=== PATIENT | male | born 1960 | race Asian ===

== ENCOUNTER → 2017-06-23 | Outpatient (CLI) | payer BC, OTHER ==
[~2017-06-23] MED LIST: BYSTOLIC2.5 MG PO; CENTRUM SILVER1 EAC2 PO; FISH OIL 1,001000 M2 PO; FLECAINIDE ACET50 M1 PO; XARELTO20 MG PO
--- NOTE | ~2017-06-23 | 2DMMODE ---
[facility] [address] [place] [address] 2 D/M-MODE ECHOCARDIOGRAM Name: FINESSE PALAFOX Ajay Room #: REG [facility]#: [id number] Admission: 06/23/17 Attend Phys: Urbano Abdi Discharge: Date of : 56 Date of Service: 06/23/17 0935 Report #: [id number] THIS REPORT FOR: //name// APPROVED REPORT Study performed: 06/23/2017 08:49:55 EXAM: Comprehensive 2D, Doppler, and color-flow Echocardiogram Patient Location: Out-Patient Room #: Echo lab BSA: 1.93 HR: 58 bpm BP: 104/76 mmHg Other Information Study Quality: Good Indications Atrial Fibrillation 2D Dimensions RVDd: 43.38 mm LVEF(%): 52.00 (>50%) IVSd: 9.02 (7-11mm) LVOT Diam: 22.38 (18-24mm) LVDd: 42.40 mm PWd: 8.99 (7-11mm) Ascending Ao: 27.94 (22-36mm) LVDs: 31.22 (25-40mm) Aortic Root: 31.78 mm IVC: 14.00 mm Pavon's LVEF: 52.00 % Volumes Left Atrial Volume (Systole) Single Plane 4CH: 28.65 mL Single Plane 2CH: 34.54 mL LA ESV Index: 20.00 mL/m2 Aortic Valve AoV Peak Daniel.: 0.98 m/s AO Peak Gr.: 3.83 mmHg LVOT Max P.34 mmHg LVOT Max V: 0.76 m/s DELIA Vmax: 3.07 cm2 Mitral Valve E/A Ratio: 1.5 MV Decel. Time: 206.34 ms MV E Max Daniel.: 0.73 m/s [facility] [place] [address] 2 D/M-MODE ECHOCARDIOGRAM Name: FINESSE PALAFOX [facility] Room #: [facility]#: [id number] Admission: 06/23/17 Attend Phys: Urbano Abdi Discharge: Date of : 56 Date of Service: 06/23/17 0935 Report #: [id number] MV A Daniel.: 0.48 m/s MV PHT: 59.84 ms IVRT: 124.57 ms Pulmonary Valve PV Peak Daniel.: 1.08 m/s PV Peak Gr.: 4.63 mmHg MA End Vmax: 1.02 m/s Pulmonary Vein P Vein S: 0.41 m/s P Vein A: 0.28 m/s P Vein D: 0.31 m/s P Vein A Dur.: 87.7 msec P Vein S/D Ratio: 1.32 Tricuspid Valve TR Peak Daniel.: 2.48 m/s TR Peak Gr.: 24.68 mmHg PA Pressure: 29.00 mmHg Left Ventricle The left ventricle is normal size. There is normal LV segmental wall motion. There is normal left ventricular wall thickness. The left ventricular systolic function is normal. The left ventricular ejection fraction is within the normal range. LVEF is 55%. Right Ventricle The right ventricle is normal size. The right ventricular systolic function is normal. Atria The left atrium size is normal. The right atrium size is normal. Aortic Valve The aortic valve is normal in structure. Trace aortic regurgitation. There is no aortic valvular stenosis. Mitral Valve The mitral valve is normal in structure. Mild mitral regurgitation. No evidence of mitral valve stenosis. Tricuspid Valve The tricuspid valve is normal in structure. There is trace to mild tricuspid regurgitation. Estimated PAP 29 mmHg. There is no pulmonary hypertension. Pulmonic Valve [address] [address] 2 D/M-MODE ECHOCARDIOGRAM Name: FINESSE PALAFOX [id number] Admission: 06/23/17 Attend Phys: Urbano Abdi Discharge: Date of : 56 Date of Service: 06/23/17 0935 Report #: [id number] The pulmonary valve is normal in structure. Trace pulmonic regurgitation. Great Vessels The aortic root is normal in size. IVC is normal in size and collapses >50% with inspiration. Pericardium There is no pericardial effusion. <Conclusion> The left ventricle is normal size. There is normal left ventricular wall thickness. The left ventricular systolic function is normal. The left atrium size is normal. Trace aortic regurgitation. Mild mitral regurgitation. There is trace to mild tricuspid regurgitation. Estimated PAP 29 mmHg. <ELECTRONICALLY SIGNED> By: Farhad Dc MD 06/23/1735 4 4 Farhad Dc MD /INF
== END ==
LOC: CV 07:18
DX: I08.1 Rheumatic disorders of both mitral and tricuspid valves (principal); I48.91 Unspecified atrial fibrillation

== ENCOUNTER → 2017-08-02 | Outpatient (CLI) | payer BC, OTHER | LOC: RAD 11:58 | DX: I48.0 Paroxysmal atrial fibrillation (principal); K21.9 Gastro-esophageal reflux disease without esophagitis ==

== ENCOUNTER → 2020-03-25 | Outpatient (CLI) | payer BC, OTHER ==
--- NOTE | 2020-03-25 10:04 | 2DMMODE ---
[facility] [place] [address] 2 D/M-MODE ECHOCARDIOGRAM Name: FINESSE PALAFOX [id number] Admission: 03/25/20 Attend Phys: Urbano Abdi MD Discharge: Date of : 56 Report #: [id number] THIS REPORT FOR: cc: Roman Roberts MD,Roman Ward,Mal Rodriguez MD [facility] ~ APPROVED REPORT Study performed: 03/25/2020 09:20:08 EXAM: Comprehensive 2D, Doppler, and color-flow Echocardiogram Patient Location: Out-Patient Room #: 2 Status: routine BSA: 1.90 HR: 49 bpm BP: 108/76 mmHg Rhythm: Bradycardia Other Information Study Quality: Good Indications Atrial Fibrillation 2D Dimensions RVDd: 34.33 mm IVSd: 7.90 (7-11mm) LVOT Diam: 20.68 (18-24mm) LVDd: 40.70 mm PWd: 9.36 (7-11mm) Ascending Ao: 29.36 (22-36mm) LVDs: 27.94 (25-40mm) Aortic Root: 32.53 mm IVC: 15.00 mm Volumes Left Atrial Volume (Systole) Single Plane 4CH: 42.83 mL Single Plane 2CH: 35.41 mL LA ESV Index: 24.00 mL/m2 Aortic Valve AoV Peak Daniel.: 0.97 m/s AO Peak Gr.: 3.75 mmHg LVOT Max P.78 mmHg LVOT Max V: 0.83 m/s DELIA Vmax: 2.89 cm2 [facility] [address] [place] [address] 2 D/M-MODE ECHOCARDIOGRAM Name: VIVIENNEFINESSE CHEW DUAjay Room #: REG [facility]#: [id number] Admission: 03/25/20 Attend Phys: Urbano Abdi Discharge: Date of : 56 Report #: [id number] Mitral Valve E/A Ratio: 1.5 MV Decel. Time: 186.44 ms MV E Max Daniel.: 0.67 m/s MV A Daniel.: 0.45 m/s MV PHT: 54.07 ms IVRT: 87.66 ms Pulmonary Valve PV Peak Daniel.: 1.23 m/s PV Peak Gr.: 6.15 mmHg Pulmonary Vein P Vein S: 0.43 m/s P Vein A: 0.20 m/s P Vein D: 0.40 m/s P Vein A Dur.: 87.7 msec P Vein S/D Ratio: 1.08 Tricuspid Valve TR Peak Daniel.: 2.20 m/s TR Peak Gr.: 19.44 mmHg Left Ventricle The left ventricle is normal size. There is normal LV segmental wall motion. There is normal left ventricular wall thickness. Left ventricular systolic function is normal. The left ventricular ejection fraction is within the normal range. LVEF is 60-65%. The left ventricular diastolic function is normal. Right Ventricle The right ventricle is normal size. The right ventricular systolic function is normal. Atria The left atrium size is normal. The right atrium size is normal. Aortic Valve The aortic valve is normal in structure. Trace aortic regurgitation. There is no aortic valvular stenosis. Mitral Valve The mitral valve is normal in structure. Mild mitral regurgitation. No evidence of mitral valve stenosis. Tricuspid Valve The tricuspid valve is normal in structure. There is no tricuspid valve regurgitation noted. [facility] [address] [place] [address] 2 D/M-MODE ECHOCARDIOGRAM Name: FINESSE PALAFOX Room #: REG [facility] [id number] Admission: 03/25/20 Attend Phys: [facility] Discharge: Date of : 56 Report #: [id number] Pulmonic Valve The pulmonary valve is normal in structure. There is no pulmonic valvular regurgitation. Great Vessels The aortic root is normal in size. IVC is normal in size and collapses >50% with inspiration. Pericardium There is no pericardial effusion. <Conclusion> Left ventricular systolic function is normal. There is normal LV segmental wall motion. LVEF is 60-65%. Normal diastolic function The aortic valve is normal in structure. Trace aortic regurgitation, no stenosis The mitral valve is normal in structure. Mild mitral regurgitation. Pulmonary artery systolic pressure could not be reliably ascertained There is no pericardial effusion. <ELECTRONICALLY SIGNED> By: Mal Ward MD, FACC 03/25/20 1004 100 100 Mal Ward MD, FACC /INF
== END ==
LOC: CV 08:40
PROVIDERS: ATTEND Internal Medicine Cardiovascular Disease
DX: I34.0 Nonrheumatic mitral (valve) insufficiency (principal); I48.0 Paroxysmal atrial fibrillation

== ENCOUNTER → 2021-01-29 | Outpatient (CLI) | payer OTHER | LOC: CAT 14:31 | PROVIDERS: ATTEND Internal Medicine Cardiovascular Disease | DX: Z13.6 Encounter for screening for cardiovascular disorders (principal); I25.10 Atherosclerotic heart disease of native coronary artery without angina pectoris ==

== ENCOUNTER → 2021-02-24 | Outpatient (CLI) | payer BC, OTHER | LOC: SJCVCIMAG 07:59 | PROVIDERS: ATTEND Internal Medicine Cardiovascular Disease | DX: R93.1 Abnormal findings on diagnostic imaging of heart and coronary circulation (principal); I48.0 Paroxysmal atrial fibrillation; I49.1 Atrial premature depolarization; E78.00 Pure hypercholesterolemia, unspecified; K21.9 Gastro-esophageal reflux disease without esophagitis; Z79.82 Long term (current) use of aspirin; Z79.899 Other long term (current) drug therapy ==